=== PATIENT | female | born 1975 | race Caucasian/White ===

== ENCOUNTER → 2021-10-30 | Outpatient (CLI) | payer OTHER, SELFPAY ==
--- NOTE | 2021-10-30 13:40 | FLU_PTH ---
PATIENT: DOC PASTRANA LOC: [facility] U#:[id number] AGE/SX: 46/F ROOM: RE10/30/[address]: Dr. Bret Potter MD : [id number] BED: DIS: 10/30/2021 SPEC #: [id number] RECD: 10/30/21 15:48 STATUS: LINDA REPattie #: [id number] DENISE: 10/30/21 13:[address]: Bret Potter DEPT: CYTOLOGY RECD BY: Lacie Alaniz ENTERED: 10/31/21 07:43 SP TYPE: Fluid OTHR DR: Out of Town Doctor Tissues: A - Thyroid gland, NOS B - Thyroid gland, NOS Procedures: Special Stain Group II Surgery Specimen Level IV Cytospin Fluid Cytology Other HEADER OPERATION: Fine needle aspiration left thyroid nodule (superior) PRE-OP DIAGNOSIS: Multiple thyroid nodules TISSUE SUBMITTED: A - FNA left superior thyroid nodule fluid, B - FNA left superior thyroid nodule x4 slides DIAGNOSIS CYTOLOGY A. Left superior thyroid nodule fluid, fine needle aspiration (cytospin and cell block): Negative for malignant cells. See cytology study. B. Left superior thyroid nodule, fine needle aspiration (smears): Consistent with benign follicular/colloid nodule (Warren Category II). Adequate for evaluation. See comment. EMMANUEL:khurram 11/01/2021 COMMENT Correlation with clinical, radiologic findings and appropriate follow up are necessary. The Warren System for thyroid diagnostic categorization was used in the evaluation of this case. CYTOLOGY STUDY Slides are reviewed. A. Rare macrophages and benign follicular cells are noted. CYTOLOGY GROSS A - Received is 30 ml of light pink fluid labeled with the patient's name and and designated per the requisition as left superior thyroid nodule. Submitted for cytology preparation including cell block. B - Received are four smears labeled with the patient's name and designated per the requisition as left superior thyroid nodule. Submitted for staining. / khurram 10/31/2021 TC:5 CPT: 61783 x2, 18171
== END | disposition home or self-care (01) ==
LOC: LABSPEC 15:55
PROVIDERS: Visit Provider Surgery
DX: E04.2 Nontoxic multinodular goiter (principal)
CPT/HCPCS: 88108; 88161; 88305; 88313